=== PATIENT | female | born 1995 | race Caucasian/White ===

== ENCOUNTER 2018-10-05 17:25 | Inpatient (IN) | payer OTHER ==
[2018-10-05] MEDS ORDERED: AMPICILLIN - 2 GM in SODIUM CHLORIDE 100 ML IVPB ONE (18:00)
[2018-10-05 18:25] LABS: BASO % 0.6 % (0-2.0); HEMATOCRIT 35.4 % (32.4-45.2); HEMOGLOBIN 12.8 GM/dL (10.7-15.3); LYMPH % 21.1 % (8-40); MCHC 36.1 g/dl (32.0-36.0); MEAN CELL VOLUME 91.3 fl (80-96); MEAN PLT VOLUME 9.3 fl (7.5-11.1); MONO % 5.2 % (3.8-10.2); NEUT % 72.1 % (42.8-82.8); PLATELET COUNT 168 K/MM3 (134-434); RBC 3.88 M/mm3 (3.60-5.2); RDW 13.2 % (11.6-15.6); WHITE BLOOD COUNT 6.9 K/mm3 (4.0-10.0)
[2018-10-05 18:29] VITALS: BMI 26.4
[2018-10-05 18:41] LABS: ANION GAP 7 MMOL/L (8-16); BLOOD UREA NITROGEN 11 mg/dL (7-18); CALCIUM 8.7 mg/dL (8.5-10.1); CHLORIDE 104 mmol/L (98-107); CO2 24 mmol/L (21-32); CREATININE 0.5 mg/dL (0.55-1.3); GLUCOSE,RANDOM 80 mg/dL (74-106); POTASSIUM 4.1 mmol/L (3.5-5.1); SODIUM 135 mmol/L (136-145)
[2018-10-05 18:51] LABS: INR 0.97 (0.83-1.09); PROTHROMBIN TIME (PATIENT) 11.5 SEC (9.7-13.0)
[2018-10-05 18:54] LABS: ACTIVATED PTT 26.8 SECONDS (25.2-36.5)
--- NOTE | 2018-10-05 20:49 | PN ---
Progress Note (short form) - Note Progress Note: cx 1 cm 50 vx -3 mr , fhr cat 1, , nitrazine positive , cervidil risks and benfit discussed ,ulternatives , expectant management discussed , agreed to have cervidil
--- NOTE | 2018-10-05 20:54 | HP ---
Past Medical History - Primary Care Physician PCP:: Farhan Benavidez - Admission Chief Complaint: 38 weeks, PROM , GBS positve History of Present Illness: 22 yo f edc by sono 10/14/18 38 weeks, c/o rom ,clear fluid since 10 am 10/05/18,, no pain, no fever cx 1 cm 50 vx -3 mr, fhr cat 1, no contraction, fhr otoniel, GBS positve History Source: Patient Limitations to Obtaining History: No Limitations - Past Medical History ...: 2 ...Para: 0 ...Term: 0 ...: 0 ...Spon : 0 ...Induced : 1 ...Multiple Gestation: 0 ...LMP: 12/26/17 ... Weeks Gestation by Dates: 40.3 ...EDC by Dates: 10/02/18 ...EDC by Sono: 10/14/18 - Past Surgical History Hx Myomectomy: No Hx Transabdominal Cerclage: No - Smoking History Smoking history: Never smoked Have you smoked in the past 12 months: No - Alcohol/Substance Use Hx Alcohol Use: No - Social History History of Recent Travel: No Home Medications - Allergies Allergies/Adverse Reactions: Allergies Allergy/AdvReac Type Severity Reaction Status Date / Time No Known Allergies Allergy Verified 09/21/18 15:32 - Home Medications Home Medications: Ambulatory Orders Pnv No.95/Ferrous Fum/Folic AC [ Formula] 1 each PO DAILY 09/19/18 Review of Systems - Review of Systems Constitutional: reports: No Symptoms Eyes: reports: No Symptoms HENT: reports: No Symptoms Neck: reports: No Symptoms Cardiovascular: reports: No Symptoms Respiratory: reports: No Symptoms Gastrointestinal: reports: No Symptoms Genitourinary: reports: No Symptoms Breasts: reports: No Symptoms Reported Musculoskeletal: reports: No Symptoms Integumentary: reports: No Symptoms Neurological: reports: No Symptoms Endocrine: reports: No Symptoms Hematology/Lymphatic: reports: No Symptoms Psychiatric: reports: No Symptoms Physical Exam - Maternity Vital Signs: Vital Signs Temperature 98.3 F 10/05/18 20:00 Pulse Rate 89 10/05/18 20:00 Respiratory Rate 20 10/05/18 20:00 Blood Pressure 114/72 10/05/18 20:00 O2 Sat by Pulse Oximetry (%) Constitutional: Yes: Well Nourished, No Distress, Calm Eyes: Yes: WNL, Conjunctiva Clear, EOM Intact HENT: Yes: WNL, Atraumatic, Normocephalic Neck: Yes: WNL, Supple, Trachea Midline Cardiovascular: Yes: WNL, Regular Rate and Rhythm Breast(s): Yes: WNL - Abdominal Exam/OB Fundal Height: 40 Regularity: Irregular Intensity: Unaware Monitor Mode: External Heart Rate Location: [facility] Category: I Accelerations: Uniform Decelerations: None - Vaginal Exam/OB Vaginal Bleediing: No Speculum Exam: Yes Dilatation (cm): 1cm Effacement (%): 50 Amniotic Membrane Status: Ruptured Nitrazine Test: Positive Amniotic Fluid: Yes: Clear Presentation: Vertex/Position Station: -3 - Physical Exam Musculoskeletal: Yes: WNL Extremities: Yes: WNL Edema: Yes Edema: LLE: Trace, RLE: Trace Deep Tendon Reflex Grade: Normal +2 ...Motor Strength: WNL Psychiatric: Yes: WNL - Labs Lab Results: CBC, BMP 10/05/18 17:30 10/05/18 17:30 Hemorrhage Risk Assessment - Risk Factors Medium Risk Factors: Yes: None High Risk Factors: Yes: None Risk Score: 1 Risk Level: Medium Risk Problem List - Problems (1) with 38 completed weeks gestation Code(s): Z3A.38 - 38 WEEKS GESTATION OF (2) PROM (premature rupture of membranes) Code(s): O42.90 - MACRINA ROM, 7TH0 BETW RUPT & ONST LABR, UNSP WEEKS OF GEST Qualifiers: PROM onset of labor timing: onset of labor more than 24 hours following rupture (3) Positive GBS test Code(s): B95.1 - STREPTOCOCCUS, GROUP B, CAUSING DISEASES CLASSD ELSWHR Assessment/Plan admit, fhm. iv ampicillin cervidil induction, rba discussed , agreed to have cervidil induction
[2018-10-05] MEDS ORDERED: DEXTROSE 5%-LACTATED RINGERS 1,000 ML IV SCH (21:00)
[2018-10-05] MEDS ORDERED: PROMETHAZINE HCL 25 MG/1 ML VIAL IVPUSH ONE (21:15)
[2018-10-05] MEDS ORDERED: BUTORPHANOL TARTRATE 1 MG/ML VIAL IVPUSH ONE (21:15)
[2018-10-05] MEDS ORDERED: AMPICILLIN SODIUM 1 GM VIAL ONE (21:45)
[2018-10-05] MEDS: AMPICILLIN - 1 GM in SODIUM CHLORIDE 100 ML IVPB SCH (22:00)
[2018-10-06] MEDS ORDERED: AMPICILLIN SODIUM 1 GM VIAL ONE ×3 (01:56→09:59)
[2018-10-06] MEDS: AMPICILLIN - 1 GM in SODIUM CHLORIDE 100 ML IVPB SCH ×4 (02:00→17:00)
--- NOTE | 2018-10-06 02:09 | PN ---
Progress Note (short form) - Note Progress Note: cx 2 cm 70 vx -3 mr, fhr cat 1, contraction q 2 min , cervidil removed , wants pain meds Problem List - Problems (1) with 38 completed weeks gestation Code(s): Z3A.38 - 38 WEEKS GESTATION OF (2) PROM (premature rupture of membranes) Code(s): O42.90 - MACRINA ROM, 7TH0 BETW RUPT & ONST LABR, UNSP WEEKS OF GEST Qualifiers: PROM onset of labor timing: onset of labor more than 24 hours following rupture (3) Positive GBS test Code(s): B95.1 - STREPTOCOCCUS, GROUP B, CAUSING DISEASES CLASSD ELSWHR
[2018-10-06] MEDS ORDERED: BUTORPHANOL TARTRATE 1 MG/ML VIAL ONE ×2 (02:13)
[2018-10-06] MEDS ORDERED: PROMETHAZINE HCL 25 MG/1 ML VIAL ONE (02:14)
[2018-10-06] MEDS ORDERED: ELECTROLYTE-148 SOLN 1,000 ML IV SCH ×2 (02:15→08:15)
[2018-10-06] MEDS ORDERED: OXYTOCIN 30 UNITS in 0.9% NS 30 UNIT/500 ML INFUS.BAG IVPB SCH (03:15)
[2018-10-06] MEDS ORDERED: OXYTOCIN 30 UNITS in 0.9% NS 30 UNIT/500 ML INFUS.BAG IVPB ONE (06:23)
--- NOTE | 2018-10-06 08:06 | PN ---
Progress Note (short form) - Note Progress Note: cx 3 cm 70 vx -3 mr, fhr cat 1, irregular contraction, on pitocin, wants epidural Problem List - Problems (1) with 38 completed weeks gestation Code(s): Z3A.38 - 38 WEEKS GESTATION OF (2) PROM (premature rupture of membranes) Code(s): O42.90 - MACRINA ROM, 7TH0 BETW RUPT & ONST LABR, UNSP WEEKS OF GEST Qualifiers: PROM onset of labor timing: onset of labor more than 24 hours following rupture (3) Positive GBS test Code(s): B95.1 - STREPTOCOCCUS, GROUP B, CAUSING DISEASES CLASSD ELSWHR
[2018-10-06] MEDS ORDERED: FENTANYL/BUPIVACAINE/NS/PF - PCEA - 50 ML DISP.SYRIN EP ONE (08:08)
[2018-10-06] MEDS ORDERED: NALOXONE HCL 0.4 MG/ML VIAL IVPUSH PRN (10:35)
[2018-10-06] MEDS ORDERED: FENTANYL/BUPIVACAINE/NS/PF - PCEA - 50 ML DISP.SYRIN EP SCH (10:45)
[2018-10-06] MEDS ORDERED: CITRIC ACID/SODIUM CITRATE 30 ML UNIT-DOSE CUP PO ONE (12:54)
[2018-10-06] MEDS ORDERED: LIDO 2%/EPI 1:200000 PRESRVFRE (20 ML SDVIAL) ONE (13:31)
[2018-10-06] MEDS ORDERED: OXYTOCIN 20 UNITS in 0.9% NS 20 UNIT/1,000 ML INFUS.BAG IV ONE (13:31)
[2018-10-06] MEDS ORDERED: SODIUM BICARBONATE 8.4% 50 MEQ/50 ML VIAL ONE (13:31)
[2018-10-06] MEDS ORDERED: METHYLERGONOVINE MALEATE 0.2 MG/1 ML AMP IM PRN (13:43)
[2018-10-06] MEDS ORDERED: oxyCODONE HCL 5 MG TABLET PO PRN (13:43)
[2018-10-06] MEDS ORDERED: diphenhydrAMINE HCL 25 MG CAPSULE (FP) PO PRN (13:43)
[2018-10-06] MEDS ORDERED: BENZOCAINE 28 GM HEMORRHOIDAL OINTMENT PR PRN (13:43)
[2018-10-06] MEDS ORDERED: IBUPROFEN 800 MG/8 ML IJ IVPB PRN (13:43)
[2018-10-06] MEDS ORDERED: WITCH HAZEL 50% (TUCKS) 40 PAD/JAR PAD TP PRN (13:43)
[2018-10-06] MEDS ORDERED: BENZOCAINE 20% 57 GM BOTTLE TP PRN (13:43)
--- NOTE | 2018-10-06 13:43 | PN ---
Progress Note (short form) - Note Progress Note: cx 3 cm 70 vx -3 mr, tachycardia , with mild variab;le , cat 2 tracing, in view of prolonged prom, no dilation advised c/s , risks and ulternative discussed Problem List - Problems (1) with 38 completed weeks gestation Code(s): Z3A.38 - 38 WEEKS GESTATION OF (2) PROM (premature rupture of membranes) Code(s): O42.90 - MACRINA ROM, 7TH0 BETW RUPT & ONST LABR, UNSP WEEKS OF GEST Qualifiers: PROM onset of labor timing: onset of labor more than 24 hours following rupture (3) Positive GBS test Code(s): B95.1 - STREPTOCOCCUS, GROUP B, CAUSING DISEASES CLASSD ELSWHR
[2018-10-06] MEDS ORDERED: OXYTOCIN 20 UNITS in 0.9% NS 20 UNIT/1,000 ML INFUS.BAG IV SCH (13:45)
[2018-10-06] MEDS ORDERED: ceFAZolin SODIUM 1 GM VIAL ONE (13:58)
[2018-10-06] MEDS ORDERED: ePHEDrine SULFATE 50 MG/1 ML AMPULE ONE (14:00)
--- NOTE | 2018-10-06 14:51 | SURG ---
Surgery Oil Field Roustabout Note [employer] Roustabout: Irvin Tanner PA-C Date of Service: 10/06/18 Diagnosis: Prolonged PROM, no dilation Procedure: Section I was present for the entirety of the operative procedure. For further detail, please refer to operative report. Visit type - Case Type Case Type: Scheduled - New patient This patient is new to me today: Yes Date on this admission: 10/06/18
[2018-10-06] MEDS ORDERED: ONDANSETRON 4 MG/2 ML VIAL IVPUSH PRN (15:04)
[2018-10-06 15:08] LABS: ARTERIAL BLD GAS O2 SATURATION 17.7 % (90-98.9); ARTERIAL BLOOD GAS BASE EXCESS -1.6 meq/l (-2-2); ARTERIAL BLOOD GAS PCO2 60.3 mmHg (35-45); ARTERIAL BLOOD GAS PO2 13.8 mmHg (80-100); ARTERIAL BLOOD GAS pH 7.27 (7.35-7.45)
[2018-10-06 15:10] LABS: VENOUS PC02 58.6 mmHg (38-52); VENOUS PH 7.29 (7.32-7.42); VENOUS PO2 12.4 mmHg (28-48)
[2018-10-06] MEDS ORDERED: CEFAZOLIN 1 GM/D5W 1 GM/50 ML BAG IVPB SCH (18:00)
[2018-10-06] MEDS: CEFAZOLIN 1 GM/D5W 1 GM/50 ML BAG IVPB SCH (22:05)
[2018-10-06] MEDS: DEXTROSE 5%-LACTATED RINGERS 1,000 ML IV SCH (22:05)
[2018-10-07] MEDS: CEFAZOLIN 1 GM/D5W 1 GM/50 ML BAG IVPB SCH (05:36)
[2018-10-07] MEDS: DEXTROSE 5%-LACTATED RINGERS 1,000 ML IV SCH (06:06)
--- NOTE | 2018-10-07 08:07 | PN ---
Post Progress Note - Subjective Subjective: c/o pain scale 4-5/10 . voided urine after galarza was d/leighann Post Day: 1 Type of Delivery: Primary C/S Vital Signs: Vital Signs Temperature 98.8 F 10/07/18 05:00 Pulse Rate 95 H 10/07/18 05:00 Respiratory Rate 17 10/07/18 06:00 Blood Pressure 106/48 L 10/07/18 05:00 O2 Sat by Pulse Oximetry (%) 98 10/06/18 16:23 Breast Exam: Yes: Soft, Other (declines to BF ). No: Engorged Uterus: Yes: Fundus Firm, Fundus below umbilicus Incision: Yes: Dressing dry and intact. No: Redness, Oozing Abdomen/GI: Yes: Abdomen soft, Passing flatus, Tolerating PO (clear fluid ). No : Abdominal Distention, Tender Lochia: Yes: Rubra Lochia, amount: Moderate Extremities: Yes: Calves non-tender. No: Edema Perineum: Yes: Intact Activity: Ambulating - Labs Labs: CBC WBC 6.9 K/mm3 (4.0-10.0) 10/05/18 17:30 RBC 3.88 M/mm3 (3.60-5.2) 10/05/18 17:30 Hgb 12.8 GM/dL (10.7-15.3) 10/05/18 17:30 Hct 35.4 % (32.4-45.2) 10/05/18 17:30 MCV 91.3 fl (80-96) 10/05/18 17:30 MCH 33.0 pg (25.7-33.7) 10/05/18 17:30 MCHC 36.1 g/dl (32.0-36.0) H 10/05/18 17:30 RDW 13.2 % (11.6-15.6) 10/05/18 17:30 Plt Count 168 K/MM3 (134-434) 10/05/18 17:30 MPV 9.3 fl (7.5-11.1) 10/05/18 17:30 Absolute Neuts (auto) 5.0 K/mm3 (1.5-8.0) 10/05/18 17:30 Neutrophils % 72.1 % (42.8-82.8) 10/05/18 17:30 Lymphocytes % 21.1 % (8-40) 10/05/18 17:30 Monocytes % 5.2 % (3.8-10.2) 10/05/18 17:30 Eosinophils % 1.0 % (0-4.5) 10/05/18 17:30 Basophils % 0.6 % (0-2.0) 10/05/18 17:30 Nucleated RBC % 0 % (0-0) 10/05/18 17:30 Other Findings, Remarks: RS cta urine out put 1700 ml Problem List - Problems (1) delivery delivered Code(s): O82 - ENCOUNTER FOR DELIVERY WITHOUT INDICATION (2) Encounter for care and examination after delivery Code(s): Z39.2 - ENCOUNTER FOR ROUTINE FOLLOW-UP Assessment/Plan stable Pp cbc pending encourage po fluids, ambulation, deep breathing
[2018-10-07 09:47] LABS: BASO % 0.4 % (0-2.0); EOS % 0.4 % (0-4.5); HEMATOCRIT 28.3 % (32.4-45.2); HEMOGLOBIN 9.8 GM/dL (10.7-15.3); LYMPH % 9.2 % (8-40); MCH 31.6 pg (25.7-33.7); MCHC 34.5 g/dl (32.0-36.0); MEAN CELL VOLUME 91.6 fl (80-96); MEAN PLT VOLUME 9.3 fl (7.5-11.1); MONO % 4.2 % (3.8-10.2); NEUT % 85.8 % (42.8-82.8); PLATELET COUNT 124 K/MM3 (134-434); RBC 3.09 M/mm3 (3.60-5.2); RDW 13.4 % (11.6-15.6); WHITE BLOOD COUNT 11.1 K/mm3 (4.0-10.0)
[2018-10-07] MEDS ORDERED: DIPHTH,PERTUSS(ACELL),TET 0.5 ML DISP.SYRIN IM ONE (10:00)
[2018-10-07] MEDS: ACETAMINOPHEN 325 MG TABLET (FP) PO PRN (10:10)
[2018-10-07] MEDS: IBUPROFEN 600 MG TABLET (FP) PO PRN ×2 (10:11→22:01)
[2018-10-07] MEDS: SIMETHICONE 80 MG TAB.CHEW (FP) PO PRN ×2 (10:12→22:00)
[2018-10-07] MEDS ORDERED: BISACODYL 10 MG SUPP.RECT PR PRN (13:43)
[2018-10-07] MEDS: SENNOSIDES/DOCUSATE COMBO (SENNA PLUS) TABLET (UD) PO PRN (22:00)
[2018-10-07] MEDS: oxyCODONE HCL 5 MG TABLET PO PRN (22:01)
[2018-10-08] MEDS: IBUPROFEN 600 MG TABLET (FP) PO PRN ×3 (02:55→19:13)
[2018-10-08] MEDS: oxyCODONE HCL 5 MG TABLET PO PRN ×4 (02:55→23:05)
[2018-10-08] MEDS: SIMETHICONE 80 MG TAB.CHEW (FP) PO PRN ×4 (02:55→23:06)
--- NOTE | 2018-10-08 08:16 | PN ---
Post Progress Note - Subjective Subjective: c/o pain at incision site 5/10 voiding without difficulty Post Day: 2 Type of Delivery: Primary C/S Vital Signs: Vital Signs Temperature 98.2 F 10/07/18 21:49 Pulse Rate 86 10/07/18 21:49 Respiratory Rate 20 10/07/18 21:49 Blood Pressure 114/52 L 10/07/18 21:49 O2 Sat by Pulse Oximetry (%) 98 10/06/18 16:23 Breast Exam: Yes: Soft, Other (BF ). No: Engorged Uterus: Yes: Fundus Firm, Fundus below umbilicus, Non-tender Incision: Yes: Dressing dry and intact (to be changed ). No: Redness, Oozing Abdomen/GI: Yes: Abdomen soft, Passing flatus (BM not done ), Tolerating PO ( det ). No: Abdominal Distention, Tender Lochia: Yes: Rubra Lochia, amount: Moderate Extremities: Yes: Calves non-tender Perineum: Yes: Intact Activity: Ambulating - Labs Labs: CBC WBC 11.1 K/mm3 (4.0-10.0) H 10/07/18 08:30 RBC 3.09 M/mm3 (3.60-5.2) L 10/07/18 08:30 Hgb 9.8 GM/dL (10.7-15.3) L 10/07/18 08:30 Hct 28.3 % (32.4-45.2) L D 10/07/18 08:30 MCV 91.6 fl (80-96) 10/07/18 08:30 MCH 31.6 pg (25.7-33.7) 10/07/18 08:30 MCHC 34.5 g/dl (32.0-36.0) 10/07/18 08:30 RDW 13.4 % (11.6-15.6) 10/07/18 08:30 Plt Count 124 K/MM3 (134-434) L D 10/07/18 08:30 MPV 9.3 fl (7.5-11.1) 10/07/18 08:30 Absolute Neuts (auto) 9.6 K/mm3 (1.5-8.0) H 10/07/18 08:30 Neutrophils % 85.8 % (42.8-82.8) H 10/07/18 08:30 Lymphocytes % 9.2 % (8-40) D 10/07/18 08:30 Monocytes % 4.2 % (3.8-10.2) 10/07/18 08:30 Eosinophils % 0.4 % (0-4.5) 10/07/18 08:30 Basophils % 0.4 % (0-2.0) 10/07/18 08:30 Nucleated RBC % 0 % (0-0) 10/07/18 08:30 Problem List - Problems (1) delivery delivered Code(s): O82 - ENCOUNTER FOR DELIVERY WITHOUT INDICATION (2) Encounter for care and examination after delivery Code(s): Z39.2 - ENCOUNTER FOR ROUTINE FOLLOW-UP Assessment/Plan stable post op anemia is noted Plan ct po care
[2018-10-08] MEDS: SENNOSIDES/DOCUSATE COMBO (SENNA PLUS) TABLET (UD) PO PRN (19:14)
[2018-10-08] MEDS: ACETAMINOPHEN 325 MG TABLET (FP) PO PRN (23:05)
--- NOTE | 2018-10-09 07:46 | PN ---
Post Progress Note - Subjective Subjective: c/o pain incision varying 5-7 bm done voiding without difficulty pt requests discharge today. Post Day: 3 Type of Delivery: Primary C/S Vital Signs: Vital Signs Temperature 98.4 F 10/08/18 19:15 Pulse Rate 88 10/08/18 19:15 Respiratory Rate 20 10/08/18 19:15 Blood Pressure 114/64 10/08/18 19:15 O2 Sat by Pulse Oximetry (%) 98 10/06/18 16:23 Breast Exam: Yes: Soft, Other (BF ). No: Engorged Uterus: Yes: Fundus Firm, Fundus below umbilicus Incision: Yes: Sutures intact. No: Redness, Oozing Abdomen/GI: Yes: Abdomen soft, Passing flatus, Tolerating PO (diet). No: Abdominal Distention, Tender Lochia: Yes: Rubra Lochia, amount: Moderate Extremities: Yes: Calves non-tender Perineum: Yes: Intact Activity: Ambulating - Labs Labs: CBC WBC 11.1 K/mm3 (4.0-10.0) H 10/07/18 08:30 RBC 3.09 M/mm3 (3.60-5.2) L 10/07/18 08:30 Hgb 9.8 GM/dL (10.7-15.3) L 10/07/18 08:30 Hct 28.3 % (32.4-45.2) L D 10/07/18 08:30 MCV 91.6 fl (80-96) 10/07/18 08:30 MCH 31.6 pg (25.7-33.7) 10/07/18 08:30 MCHC 34.5 g/dl (32.0-36.0) 10/07/18 08:30 RDW 13.4 % (11.6-15.6) 10/07/18 08:30 Plt Count 124 K/MM3 (134-434) L D 10/07/18 08:30 MPV 9.3 fl (7.5-11.1) 10/07/18 08:30 Absolute Neuts (auto) 9.6 K/mm3 (1.5-8.0) H 10/07/18 08:30 Neutrophils % 85.8 % (42.8-82.8) H 10/07/18 08:30 Lymphocytes % 9.2 % (8-40) D 10/07/18 08:30 Monocytes % 4.2 % (3.8-10.2) 10/07/18 08:30 Eosinophils % 0.4 % (0-4.5) 10/07/18 08:30 Basophils % 0.4 % (0-2.0) 10/07/18 08:30 Nucleated RBC % 0 % (0-0) 10/07/18 08:30 Problem List - Problems (1) delivery delivered Code(s): O82 - ENCOUNTER FOR DELIVERY WITHOUT INDICATION (2) Encounter for care and examination after delivery Code(s): Z39.2 - ENCOUNTER FOR ROUTINE FOLLOW-UP Assessment/Plan anemoia counselled discharge today
[2018-10-09] MEDS: ACETAMINOPHEN 325 MG TABLET (FP) PO PRN (07:47)
[2018-10-09] MEDS: SIMETHICONE 80 MG TAB.CHEW (FP) PO PRN (07:47)
[2018-10-09] MEDS: IBUPROFEN 600 MG TABLET (FP) PO PRN (07:48)
[2018-10-09 08:21] LABS: BASO % 0.6 % (0-2.0); EOS % 2.7 % (0-4.5); HEMATOCRIT 30.2 % (32.4-45.2); HEMOGLOBIN 10.5 GM/dL (10.7-15.3); LYMPH % 24.7 % (8-40); MCH 32.4 pg (25.7-33.7); MCHC 34.8 g/dl (32.0-36.0); MEAN CELL VOLUME 92.9 fl (80-96); MEAN PLT VOLUME 8.7 fl (7.5-11.1); MONO % 4.7 % (3.8-10.2); NEUT % 67.3 % (42.8-82.8); PLATELET COUNT 184 K/MM3 (134-434); RBC 3.25 M/mm3 (3.60-5.2); RDW 13.5 % (11.6-15.6); WHITE BLOOD COUNT 7.5 K/mm3 (4.0-10.0)
[2018-10-09 09:15] VITALS: BP 105/65; PULSE 86; TEMP 97.6
[2018-10-09] MEDS: oxyCODONE HCL 5 MG TABLET PO PRN (09:32)
--- NOTE | 2018-10-09 21:15 | OP ---
DATE OF OPERATION: 10/06/2018 PREOPERATIVE DIAGNOSES: , 38 weeks, prolonged, premature rupture of membranes, Cervidil and Pitocin induction, failure to dilate. POSTOPERATIVE DIAGNOSES: , 38 weeks, prolonged, premature rupture of membranes, Cervidil and Pitocin induction, failure to dilate. PROCEDURE: Primary low segment transverse section. SURGEON: Christ Wagoner MD BRAKE LININGS COATER: MAEVE Bourgeois ANESTHESIA: Epidural. ANESTHESIOLOGIST: lEsy Bunch DO ESTIMATED BLOOD LOSS: 700 mL DESCRIPTION OF OPERATIVE PROCEDURE: Patient was taken to the operating room. Under adequate epidural anesthesia, abdomen and perineum were prepped and draped. Pfannenstiel abdominal skin incision was made. Abdominal wall was cut layer by layer. Anterior peritoneum was exposed and incised. Upon entering the abdominal cavity, lower uterine segment was identified and uterovesical fold of peritoneum established. Bladder was pushed down. Then, with the lower blade of the [place] retractor in the pelvis, a low transverse incision was made. Amniotic sac was entered, clear fluid. Head delivered. Nasopharynx was suctioned. Live baby was delivered without any difficulty. Placenta was delivered manually. Uterine cavity was cleaned of all remaining tissue. Uterine incision was closed in 2 layers, first layer with 0 Biosyn continuous suture, the second layer with 0 Biosyn imbricating the first layer. Bladder flap was closed with 0 Biosyn continuous suture. Both tubes and ovaries were checked, were normal. No active bleeding was seen. All the lap pads, sponge, and instrument counts were correct. Then, peritoneum was closed with 0 Biosyn continuous suture. Muscles were brought together with interrupted sutures of 0 Biosyn. Fascia was closed with 0 Biosyn continuous suture, subcutaneous fat with interrupted suture of 0 Biosyn, and the skin was closed with 4-0 Biosyn subcuticular continuous suture. Patient tolerated the procedure well, left the OR in good condition. CHRIST WAGONER M.D. /[id number]
--- NOTE | 2018-10-27 16:38 | PATH ---
Surgical Pathology Report Patient Name: BENNETT PIZARRO [facility]. Rec. 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 Specimen(s) Received PLACENTA Clinical History , 38.4 weeks gestation Final Diagnosis PLACENTA, SECTION: 358 G THIRD TRIMESTER PLACENTA WITH TRIVASCULAR UMBILICAL CORD AND UNREMARKABLE PLACENTAL MEMBRANES. Electronically Signed Birdie Colbert M.D. Gross Description The specimen is received fresh labeled placenta and is a 358 gram, 18.0 x 14.0 x 2.4 cm. placenta with attached membranes and umbilical cord. The attached membranes are rucker, translucent with focal opacities and insert marginally. The umbilical cord measures 11.5 cm. in length and averages 1.3 cm. in diameter. The cord inserts eccentrically, 4.5 cm. to the nearest margin. No true knots or strictures are identified. Cut surface of the umbilical cord reveals 3 vessels. The surface is [place]iams[place]-blue with minimal fibrin deposition and appropriate caliber vessels. The maternal surface is red-brown with focal defects. Sectioning reveals red-brown, spongy parenchyma. No lesions are identified. Chair Inspector sections are submitted in three cassettes as follows: 1- membrane rolls and umbilical cord; 2-3- full thickness sections of placenta. /10/26/2018 [facility]10/26/2018
== END 2018-10-09 15:15 | disposition home or self-care (01) | DRG 540 ==
LOC: JLDR 17:25 → J3W 10-06 17:26
PROVIDERS: ADMIT Obstetrics & Gynecology; ATTEND Obstetrics & Gynecology
PROC: 10D00Z1 Extraction of Products of Conception, Low, Open Approach (ICD-10-PCS; principal; 2018-10-05)
PROC: 3E0P7VZ Introduction of Hormone into Female Reproductive, Via Natural or Artificial Opening (ICD-10-PCS; 2018-10-05)
DX: O42.02 Full-term premature rupture of membranes, onset of labor within 24 hours of rupture (principal); O99.824 Streptococcus B carrier state complicating childbirth; Z3A.38 38 weeks gestation of pregnancy; Z37.0 Single live birth
CPT/HCPCS: 36415; 36600; 80048; 82803; 85025; 85610; 85730; 86593; 86850; 86900; 86901; 88307-TC; 90715

== ENCOUNTER 2019-08-15 17:12 | Emergency (ER) | payer OTHER ==
--- NOTE | 2019-08-15 17:44 | PDOC ---
Rapid Medical Evaluation Medical Evaluation: Allergies Allergy/AdvReac Type Severity Reaction Status Date / Time No Known Allergies Allergy Verified 09/21/18 15:32 08/15/19 17:32 I have performed a brief in-person evaluation of this patient. The patient presents with a chief complaint of:Suture removal to R hand Pertinent physical exam findings:well healed wounds to palm I have ordered the following:nothin The patient will proceed to the ED for further evaluation. Discharge Disposition - Diagnosis Visit for suture removal - Referrals - Patient Instructions - Post Discharge Activity
[2019-08-15 17:46] VITALS: BP 99/60; PULSE 58; TEMP 97.8; BMI 20.3
--- NOTE | 2019-08-15 18:16 | PDOC ---
History of Present Illness - General Chief Complaint: Suture/Staple Removal(Here) Stated Complaint: REMOVAL OF STCHES Time Seen by Provider: 08/15/19 17:42 - History of Present Illness Initial Comments: 08/15/19 18:15 23-year-old female presents for suture removal right hand no sequelae since suture placement Past History - Past Medical History Allergies/Adverse Reactions: Allergies Allergy/AdvReac Type Severity Reaction Status Date / Time No Known Allergies Allergy Verified 09/21/18 15:32 Home Medications: Ambulatory Orders NK [No Known Home Medication] 08/15/19 Asthma: No Cancer: No Cardiac Disorders: No COPD: No Diabetes: No HTN: No Seizures: No Thyroid Disease: No - Immunization History Immunization Up to Date: Yes - Psycho Social/Smoking Cessation Hx Smoking History: Never smoked Have you smoked in the past 12 months: No Information on smoking cessation initiated: No Hx Alcohol Use: No Drug/Substance Use Hx: No Hx Substance Use Treatment: No Review of Systems - Review of Systems Constitutional: No: Fever *Physical Exam - Vital Signs Last Vital Signs Temp Pulse Resp BP Pulse Ox 97.8 F 58 L 17 99/60 100 08/15/19 17:39 08/15/19 17:39 08/15/19 17:39 08/15/19 17:39 08/15/19 17:39 - Physical Exam 08/15/19 18:15 Right hand wounds clean dry and intact. 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 After 48 hours you may gently wash the area with soap and water and pat it dry and leave it open to air. Do not apply any ointment such as bacitracin or Neosporin. Without fail please follow-up with your primary care physician in 2 to 3 days for a wound check. Return to the emergency room for further issues. - Post Discharge Activity
== END 2019-08-15 18:28 | disposition home or self-care (01) ==
LOC: JERFT 17:12
DX: Z48.817 Encounter for surgical aftercare following surgery on the skin and subcutaneous tissue (principal); Z48.02 Encounter for removal of sutures
CPT/HCPCS: 99281-25

== ENCOUNTER 2020-08-23 04:26 | Emergency (ER) | payer OTHER ==
[2020-08-23] MEDS ORDERED: SODIUM CHLORIDE 0.9% 500 ML INFUS.BAG IV ONE (04:43)
[2020-08-23 05:00] VITALS: PULSE 66; BMI 19.5
[2020-08-23] MEDS ORDERED: ONDANSETRON 4 MG/2 ML VIAL IVPUSH ONE (05:00)
[2020-08-23] MEDS ORDERED: SODIUM CHLORIDE 0.9% 1000 ML INFUS.BAG IV ONE (05:01)
[2020-08-23] MEDS ORDERED: ONDANSETRON 4 MG/2 ML VIAL ONE (05:19)
[2020-08-23 05:25] LABS: BASO % 1.3 % (0-2.0); EOS % 1.2 % (0-4.5); HEMATOCRIT 37.3 % (32.4-45.2); HEMOGLOBIN 12.3 GM/dL (10.7-15.3); LYMPH % 39.1 % (8-40); MCH 27.8 pg (25.7-33.7); MCHC 33.1 g/dl (32.0-36.0); MEAN PLT VOLUME 8.9 fl (7.5-11.1); MONO % 5.3 % (3.8-10.2); NEUT % 53.1 % (42.8-82.8); PLATELET COUNT 167 K/MM3 (134-434); RBC 4.44 M/mm3 (3.60-5.2); RDW 15.7 % (11.6-15.6); WHITE BLOOD COUNT 5.3 K/mm3 (4.0-10.0)
[2020-08-23 05:41] LABS: POTASSIUM 3.8 mmol/L (3.5-5.1)
[2020-08-23 05:43] LABS: ALBUMIN 4.2 g/dl (3.4-5.0); BLOOD UREA NITROGEN 13.9 mg/dL (7-18); CALCIUM 8.9 mg/dL (8.5-10.1)
[2020-08-23 05:48] LABS: CREATININE 0.5 mg/dL (0.55-1.3)
[2020-08-23 05:49] LABS: BILIRUBIN,TOTAL 0.2 mg/dL (0.2-1); TOT PROT 7.5 g/dl (6.4-8.2)
[2020-08-23] MEDS ORDERED: MAGNESIUM SULF 50% (8.12 MEQ/2 ML-1 GM VIAL) IVPB ONE (05:59)
[2020-08-23] MEDS ORDERED: MAGNESIUM SULFATE IN WATER 2 GM/50 ML IVPB IVPB ONE (06:05)
[2020-08-23 08:40] VITALS: BP 100/61; TEMP 98
== END 2020-08-23 08:40 | disposition home or self-care (01) ==
LOC: JER 04:26
PROC: 3E033NZ Introduction of Analgesics, Hypnotics, Sedatives into Peripheral Vein, Percutaneous Approach (ICD-10-PCS; principal; 2020-08-23)
PROC: 3E033GC Introduction of Other Therapeutic Substance into Peripheral Vein, Percutaneous Approach (ICD-10-PCS; 2020-08-23)
DX: F10.920 Alcohol use, unspecified with intoxication, uncomplicated (principal); I45.81 Long QT syndrome
CPT/HCPCS: 36415; 80053; 80307; 84703; 85025; 93005; 93010; 99285-25; C9803; U0003

== ENCOUNTER 2022-04-04 19:44 | Emergency (ER) | payer OTHER ==
[2022-04-04 20:15] VITALS: BP 98/64; PULSE 100; RESP 20; TEMP 98.3; BMI 21.0
== END 2022-04-04 22:20 | disposition left against medical advice (07) ==
LOC: JER 19:44
DX: R11.2 Nausea with vomiting, unspecified (principal)
CPT/HCPCS: 99281-25

== ENCOUNTER 2024-09-26 12:00 | Emergency (ER) | payer OTHER ==
[2024-09-26 12:06] VITALS: TEMP 98.6; BMI 21.9
[2024-09-26 13:02] LABS: BASO % 0.8 % (0-2.0); EOS % 0.3 % (0-4.5); HEMATOCRIT 40.7 % (32.4-45.2); HEMOGLOBIN 13.2 GM/dL (10.7-15.3); LYMPH % 16.9 % (8-40); MCHC 32.3 g/dl (32.0-36.0); MEAN CELL VOLUME 89.8 fl (80-96); MEAN PLT VOLUME 9.4 fl (7.5-11.1); MONO % 6.1 % (3.8-10.2); NEUT % 75.9 % (42.8-82.8); PLATELET COUNT 154 10^3/uL (134-434); RBC 4.53 M/mm3 (3.60-5.2); RDW 14.4 % (11.6-15.6)
[2024-09-26] MEDS: SODIUM CHLORIDE 0.9% 1000 ML INFUS.BAG IV ONE (13:14)
[2024-09-26 13:31] LABS: POTASSIUM 3.4 mmol/L (3.5-5.1)
[2024-09-26 13:33] LABS: CALCIUM 9.1 mg/dL (8.5-10.1); INR 1.1 (0.83-1.09)
[2024-09-26 13:34] LABS: ALBUMIN 4.3 g/dl (3.4-5.0); BLOOD UREA NITROGEN 9.6 mg/dL (7-18)
[2024-09-26 13:37] LABS: CREATININE 0.5 mg/dL (0.55-1.3)
[2024-09-26 13:39] LABS: BILIRUBIN,TOTAL 0.5 mg/dL (0.2-1); TOT PROT 7.7 g/dl (6.4-8.2)
[2024-09-26 15:16] LABS: HIV INTERPRETATION NEGATIVE (NEGATIVE)
[2024-09-26 15:25] LABS: PH,URINE 6.5 (5.0-8.0); URINE APPEARANCE CLEAR; URINE BILIRUBIN NEGATIVE (NEGATIVE); URINE COLOR YELLOW; URINE GLUCOSE (UA) NEGATIVE (NEGATIVE); URINE KETONE 2+ (NEGATIVE); URINE LEUK ESTERASE NEGATIVE (NEGATIVE); URINE NITRITE NEGATIVE (NEGATIVE); URINE PROTEIN NEGATIVE (NEGATIVE); URINE UROBILINOGEN 0.2 mg/dL (0.2-1.0)
[2024-09-26 15:39] LABS: COCAINE, UR POSITIVE (NEGATIVE); METHADONE, UR NEGATIVE (NEGATIVE); OPIATES, URI NEGATIVE (NEGATIVE); URINE AMPHETAMINES NEGATIVE (NEGATIVE); URINE BARBITURATES NEGATIVE (NEGATIVE); URINE BENZODIAZEPINES NEGATIVE (NEGATIVE)
[2024-09-26 15:40] LABS: PHENCYCLIDINE,URINE NEGATIVE (NEGATIVE)
[2024-09-26] MEDS ORDERED: MAGNESIUM OXIDE 400 MG TABLET (FP) ONE (16:45)
[2024-09-26] MEDS: MAGNESIUM OXIDE 400 MG TABLET (FP) PO ONE (16:46)
[2024-09-26 16:47] VITALS: BP 120/68; PULSE 82; RESP 17
== END 2024-09-26 17:01 | disposition home or self-care (01) ==
LOC: JER 12:00
DX: F14.90 Cocaine use, unspecified, uncomplicated (principal); F12.90 Cannabis use, unspecified, uncomplicated; R07.9 Chest pain, unspecified
CPT/HCPCS: 36415; 71045-TC-FY; 80053; 80307; 81003; 83735; 84484; 85025; 85610; 85730; 86803; 87389; 93005; 93010; 99285-25